=== PATIENT | male | born 1950 | race Caucasian/White ===

== ENCOUNTER → 2016-03-09 | Outpatient (CLI) | payer BC ==
[2016-03-09 10:31] LABS: ALBUMIN 4.4 g/dL (3.4-5.0); ANION GAP 12.5 MEQ/L (3-15); CALCULATED IONIZED CALCIUM 4.1 mg/dL (3.8-4.6)
== END ==
LOC: RAD 09:00
PROVIDERS: ATTEND Family Medicine
DX: N18.9 Chronic kidney disease, unspecified (principal)
CPT/HCPCS: 36415; 76770; 80053; 82306; 82570; 83970; 84156

== ENCOUNTER → 2016-03-31 | Outpatient (CLI) | payer BC | LOC: RAD 07:48 | PROVIDERS: ATTEND Family Medicine | DX: N28.89 Other specified disorders of kidney and ureter (principal) | CPT/HCPCS: 74170; Q9967 ==